=== PATIENT | male | born 1965 | race Caucasian/White ===

== ENCOUNTER 2019-02-25 07:23 | Emergency (ER) | payer OTHER ==
--- OUTSIDE RECORDS SUMMARY | 2019-02-25 07:29 | XMS REPORT | Continuity of Care Document ---
:1965 External Reference #:[id number] Author Name Carmencita Escudero DNP, RN, [employer] (transmitted by agent of provider Tish Hill) Address [address], [address] [place] [address] Care Team Providers Name Role Phone Chaparro Ny MD - Cardiovascular Care Team Information [employer] [phone] Disease Problems Active Problems Provider Date Hypersomnia with sleep apnea Kayode Shipman M.D. Onset: 08/07/2014 Insomnia Kayode Shipman M.D. Onset: 08/07/2014 Obstructive sleep apnea syndrome Kayode Shipman M.D. Onset: 11/27/2014 Note: Severe AHI 1.1 Asthma Chelsie Rayo M.D. Onset: 01/05/2015 Mild persistent asthma Kayode Shipman M.D. Onset: 09/17/2015 Social History Type Date Description Comments Sex Unknown ETOH Use Denies alcohol use Tobacco Use Start: Unknown Patient has never smoked Recreational Drug Use Denies Drug Use Smoking Status Reviewed: 01/15/19 Patient has never smoked Exercise Type/Frequency Exercises regularly gym 2-6 time per week. 40-45 minutes cardio. Allergies, Adverse Reactions, Alerts Active Allergies Reaction Severity Comments Date NKDA 09/24/2012 Cat Dander difficult breathing per patient 08/07/2014 Vernon Vine/Leafs Urticaria per patient 08/07/2014 Medications Active Medications SIG Qnty Indications Ordering Date Provider Onetouch Ultra for use when 50units E16.2 Chelsie 12/15/2017 symptomatic Adrianne Rayo Strips History Medications Azithromycin two tabs day 6tabs Rohan Mcmillan, 09/03/2018 - 250mg Tablets one, one daily M.D. 12/21/2018 till gone Immunizations CPT Code Status Date Vaccine Lot # [id number] Given 01/05/2015 Pneumonia Vaccine [id number] Given 12/10/2014 Influenza Virus 3Yrs & Over 11441 Given 03/27/2014 Tdap - Tetanus/Diptheria/Acellular Pertussis [id number] Vital Signs Date Vital Result Comment 01/15/2019 1:32pm Height 68.5 inches 5'8.50" Weight 205.00 lb Heart Rate 60 /min BP Systolic Sitting 120 mmHg Lue large cuff BP Diastolic Sitting 82 mmHg Lue large cuff Respiratory Rate 12 /min O2 % BldC Oximetry 97 % BMI (Body Mass Index) 30.7 kg/m2 12/21/2018 1:32pm Height 68.5 inches 5'8.50" Weight 209.00 lb Heart Rate 74 /min BP Systolic 138 mmHg BP Diastolic 82 mmHg O2 % BldC Oximetry 98 % BMI (Body Mass Index) 31.3 kg/m2 Results Test Acquired Date Facility Test Result H/L Range Note Lipid Profile 12/15/2018 [facility] Triglycerides 79 mg/dL 1 (Trig/Chol/HDL) [address] [place], [place] [id number] [phone] Cholesterol 197 mg/dL 2 HDL Cholesterol 60.4 mg/dL 3 LDL Cholesterol 121 mg/dL 4 Laboratory test 12/15/2018 [facility] Glucose 107 mg/dL High 70-100 finding [address] [place], [place] [id number] [phone] 1 Desirable: <150 Borderline High: 150-199 High: 200-499 Very High: >500 2 Desirable: <200 Borderline High: 200-239 High: >239 3 Low: <40 Desirable: 40-60 High: >60 4 Desirable: <100 Near Optimal: 100-129 Borderline High: 130-159 High: 160-189 Very High: >189 Procedures Date Code Description Status 06/10/2009 [id number] Colonoscopy Completed Medical Devices Description No Information Available Encounters Type Date Location Provider Dx Diagnosis Office Visit 12/21/2018 Srini Rayo, Z00.00 Encntr for 1:20p Medicine - [facility] M.D. general adult medical exam w/o abnormal findings Assessments Date Code Description Provider 01/15/2019 G47.33 Obstructive sleep apnea (adult) Carmencita Escudero, JAROD, RN, [employer]BC (pediatric) 12/21/2018 Z00.00 Encounter for general adult medical Chelsie Rayo M.D. examination without abnormal findings Plan of Treatment Future Appointment(s):01/22/2020 2:15 pm - Carmencita Escudero DNP, RN, ALEKSANDR- at [facility]12/27/2019 1:20 pm - Chelsie Rayo M.D. at [facility] Medicine - [facility]01/15/2019 - Carmencita Escudero DNP, CHIP, ALEKSANDR- BCG47.33 Obstructive sleep apnea (adult) (pediatric)Comments:On CPAP auto AHI 1.1/hourFollow up:1 yearRecommendations:Continue PAP device, Benefitting and compliant with treatment. We recommend for cleaning Wipe off mask daily (baby wipe-no scent, or warm water) Clean mask, tubing, filter, and water chamber weekly inmild no scent dish soap and water. Hang to dry. If you have any sleepiness while driving you MUSTavoid operating a vehicle or machinery. If you have difficulty with your equipment, or need to replace your mask or hoses, please contact your homecare agency. A weight change of 20 pounds or more may have an effect on your equipment; if you are experiencing problems please call for an appointment. If you have any further questions, please call the [facility] at [phone]. Functional Status Description No Information Available Mental Status Description No Information Available Referrals Description No Information Available
[2019-02-25 07:41] VITALS: BP 134/76
--- NOTE | 2019-02-25 07:45 | UC ---
Respiratory Complaint HPI - HPI Summary HPI Summary: 53 yo male presents with cough. He tells me that over the last 3 days he has had an intermittently productive, but mostly dry, cough. He has not been taking anything OTC for his cough. He does not smoke. Denies fever, chills, sinus symptoms, sore throat, SOB, chest pain. - History of Current Complaint Chief Complaint: UCGeneralIllness Stated Complaint: CHEST CONGESTION Time Seen by Provider: 02/25/19 07:45 Hx Obtained From: Patient Onset/Duration: Sudden Onset Severity Initially: Mild Severity Currently: Mild Pain Intensity: 4 Pain Scale Used: 0-10 Numeric Character: Cough: Nonproductive - Allergies/Home Medications Allergies/Adverse Reactions: Allergies Allergy/AdvReac Type Severity Reaction Status Date / Time strawberry Allergy Rash Verified 02/25/19 07:33 PMH/Surg Hx/FS Hx/Imm Hx - Additional Past Medical History Additional PMH: None - Surgical History Surgical History: Yes Surgery Procedure, Year, and Place: TONSILS AGE 4 - Family History Known Family History: Positive: Respiratory Disease - Social History Occupation: Employed Full-time Lives: With Family Alcohol Use: None Substance Use Type: None Smoking Status (MU): Never Smoked Tobacco Review of Systems All Other Systems Reviewed And Are Negative: No Constitutional: Positive: Negative Skin: Positive: Negative Eyes: Positive: Negative ENT: Positive: Negative Respiratory: Positive: Cough Cardiovascular: Positive: Negative Gastrointestinal: Positive: Negative Neurological: Positive: Negative Psychological: Positive: Negative Physical Exam - Summary Physical Exam Summary: GENERAL: NAD. WDWN. No pain distress. SKIN: No rashes, sores, lesions, or open wounds. HEENT: Head: AT/NC Eyes: EOM intact. Conjunctiva clear without inflammation or discharge. Ears: Hearing grossly normal. TMs intact, no bulging, erythema, or edema. Nose: Nasal mucosa pink and moist. NTTP maxillary and frontal sinus. Throat: Posterior oropharynx without exudates, erythema, or tonsillar enlargement. Uvula midline. NECK: Supple. Nontender. No lymphadenopathy. CHEST: Mild wheezing right lung. No accessory muscle use. Breathing comfortably and in no distress. CV: RRR. Pulses intact. Cap refill <2seconds NEURO: Alert. PSYCH: Age appropriate behavior. Triage Information Reviewed: Yes Vital Signs: Initial Vital Signs Temp 97.3 F 02/25/19 07:33 Pulse 84 02/25/19 07:33 Resp 18 02/25/19 07:33 BP 134/76 02/25/19 07:33 Pulse Ox 98 02/25/19 07:33 Vital Signs Reviewed: Yes Respiratory Course/Dx - Course Course Of Treatment: Discussed viral vs bacterial with pt and he prefers to be on anbx at this time. He has an albuterol inhaler at home, I advised him to use this 1 puff q6h prn cough. - Differential Dx/Diagnosis Provider Diagnosis: Cough Discharge ED - Sign-Out/Discharge Documenting (check all that apply): Patient Departure All imaging exams completed and their final reports reviewed: No Studies - Discharge Plan Condition: Stable Disposition: HOME Prescriptions: Azithromycin TAB* [Zithromax TAB (Z-RENARD) 250 mg #6 tabs] 2 tab PO .TODAY, THEN 1 DAILY #1 renard Patient Education Materials: Acute Bronchitis (ED) Referrals: Chelsie Rayo MD [Primary Care Provider] - Additional Instructions: If you develop a fever, shortness of breath, chest pain, new or worsening symptoms - please call your PCP or go to the ED immediately. Use your inhaler that you have at home 1 puff every 6 hours as needed for your cough/wheezing - Billing Disposition and Condition Condition: STABLE Disposition: Home - Attestation Statements Provider Attestation: Pt not seen by me. I was available for consult. Chart reviewed. DEANN
== END 2019-02-25 08:00 | disposition home or self-care (01) ==
LOC: UCEAST 07:23
DX: R05 Cough (principal); Z91.018 Allergy to other foods
CPT/HCPCS: 99212; G0463